=== PATIENT | female | born 1955 | race African-American/Black ===

== ENCOUNTER 2018-08-25 10:04 | Emergency (ER) | payer SELFPAY ==
[~2018-08-25] VITALS: Ht 160 cm; Wt 83.0 kg
[2018-08-25] MEDS ORDERED: LISINOPRIL 20MG TABLET PO ONE (16:30)
[2018-08-25] MEDS ORDERED: LISINOPRIL 20MG TABLET PO NR (17:30)
[2018-08-25] MEDS ORDERED: LISINOPRIL 5MG TABLET PO NR (17:30)
[2018-08-26] MEDS ORDERED: LISINOPRIL 20MG TABLET PO ONE (05:30)
[2018-08-26] MEDS ORDERED: LISINOPRIL 20MG TABLET ONE (05:58)
[2018-08-26] MEDS ORDERED: LISINOPRIL 5MG TABLET ONE (06:02)
[2018-08-26 09:25] VITALS: BP 162/84
== END 2018-08-26 10:10 | disposition home or self-care (01) ==
LOC: ER 10:37
DX: I10 Essential (primary) hypertension (principal); Z59.0 Homelessness
CPT/HCPCS: 99284